=== PATIENT | female | born 1965 | race Caucasian/White ===

== ENCOUNTER 2016-08-06 17:10 | Emergency (ER) | payer OTHER ==
[2016-08-06] MEDS ORDERED: NITROGLYCERIN SUBLINGUAL 1/150 0.4 MG TAB SL ONE (17:54)
[2016-08-06] MEDS ORDERED: ASPIRIN 81 MG CHEWABLE TABLETS PO ONE (17:54)
[2016-08-06] MEDS ORDERED: ASPIRIN 81 MG CHEWABLE TABLETS ONE (17:57)
[2016-08-06] MEDS ORDERED: NITROGLYCERIN SUBLINGUAL 1/150 0.4 MG TAB ONE (17:58)
[2016-08-06 18:11] VITALS: TEMP 97.9; BMI 22.9
[2016-08-06 18:23] LABS: BASOPHIL 1.2 % (0-2.0); EOSINOPHIL 3.1 % (0-4.5); MCH 30.5 pg (25.7-33.7); MCHC 33.7 g/dl (32.0-36.0); MEAN CELL VOLUME 90.5 fl (80-96); MEAN PLT VOLUME 7.7 fl (7.5-11.1); NEUTROPHILS 45.9 % (42.8-82.8); PLATELET COUNT 338 K/MM3 (134-434); RDW 13.5 % (11.6-15.6); WHITE BLOOD COUNT 6.4 K/mm3 (4.0-10.0)
[2016-08-06 18:37] LABS: INR 0.96 (0.82-1.09); PROTHROMBIN TIME (PATIENT) 10.6 SEC (9.98-11.88)
[2016-08-06 18:52] LABS: ALBUMIN 3.6 g/dl (3.4-5.0); ANION GAP 9 (8-16); BILIRUBIN,TOTAL 0.3 mg/dL (0.2-1.0); CALCIUM 8.9 mg/dL (8.5-10.1); CO2 29 mmol/L (21-32); CREATININE 0.9 mg/dL (0.55-1.02); GLUCOSE,RANDOM 89 mg/dL (74-106); SGOT/AST 20 U/L (15-37); SGPT/ALT 30 U/L (12-78); TOT PROT 6.9 g/dl (6.4-8.2)
[2016-08-06 18:55] LABS: ALK PHOS 68 U/L (45-117); TROPONIN I < 0.02 ng/ml (0.00-0.05)
[2016-08-06 19:28] VITALS: BP 122/83; PULSE 66
[2016-08-06] MEDS ORDERED: KETOROLAC TROMETHAMINE 30 MG/1 ML VIAL IVPUSH ONE (19:43)
--- NOTE | 2016-08-06 19:46 | PDOC ---
History of Present Illness - General History Source: Patient, Family Exam Limitations: No Limitations - History of Present Illness Initial Comments: 08/06/16 20:00 The patient is a 50 year old female, with a significant past medical history of HLD, who presents to the emergency department with chest pain for 3 days. She describes her pain as ranging from mild to moderate, with radiation down her left arm. She notes that certain movements exacerbates the pain. She also notes that taking Tylenol mildly alleviates the pain. 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 She notes that she had a similar episode a few years ago and was diagnosed with a musculoskeletal injury. The patient denies shortness of breath, headache and dizziness. Denies fever, chills, nausea, vomit, diarrhea and constipation. Family history: Mother; HTN, CAD (in her 70s) Allergies: None Past surgical history: Bladder prolapse surgery Social history: No alcohol, tobacco or drug use PMD - Dr. Morelia Pitt <Andrew Green - Last Filed: 08/06/16 21:11> - General History Source: Patient, Family Exam Limitations: No Limitations <Manolo Cunningham - Last Filed: 08/06/16 22:53> - General Chief Complaint: Chest Pain Stated Complaint: CHEST PAIN Time Seen by Provider: 08/06/16 18:41 Past History <Andrew Green - Last Filed: 08/06/16 21:11> - Past Medical History Other medical history: denies - Psycho/Social/Smoking Cessation Hx Suicidal Ideation: No Smoking History: Never smoked Hx Alcohol Use: No Drug/Substance Use Hx: No Substance Use Type: None <Manolo Cunningham - Last Filed: 08/06/16 22:53> - Past Medical History Allergies/Adverse Reactions: Allergies Allergy/AdvReac Type Severity Reaction Status Date / Time No Known Allergies Allergy Verified 08/06/16 17:46 Home Medications: Ambulatory Orders Acetaminophen [Tylenol] 650 mg PO Q4H PRN #20 tablet 08/06/16 Naproxen [Naprosyn -] 500 mg PO BID PRN #14 tablet 08/06/16 Review of Systems - Review of Systems Able to Perform ROS?: Yes Comments:: 08/06/16 20:00 GENERAL/CONSTITUTIONAL: No fever or chills. No weakness. HEAD, EYES, EARS, NOSE AND THROAT: No change in vision. No ear pain or discharge. No sore throat. CARDIOVASCULAR: +Chest pain. No shortness of breath RESPIRATORY: No cough, wheezing, or hemoptysis. GASTROINTESTINAL: No nausea, vomiting, diarrhea or constipation. GENITOURINARY: No dysuria, frequency, or change in urination. MUSCULOSKELETAL: No joint or muscle swelling or pain. No neck or back pain. SKIN: No rash NEUROLOGIC: No headache, vertigo, loss of consciousness, or change in strength/ sensation. ENDOCRINE: No increased thirst. No abnormal weight change HEMATOLOGIC/LYMPHATIC: No anemia, easy bleeding, or history of blood clots. ALLERGIC/IMMUNOLOGIC: No hives or skin allergy. <Andrew Green - Last Filed: 08/06/16 21:11> *Physical Exam - Vital Signs Last Vital Signs Temp Pulse Resp BP Pulse Ox 97.9 F 66 12 122/83 99 08/06/16 17:48 08/06/16 19:27 08/06/16 19:27 08/06/16 19:27 08/06/16 18:42 - Physical Exam Comments: 08/06/16 20:00 GENERAL: Awake, alert, and fully oriented, in no acute distress HEAD: No signs of trauma, normocephalic, atraumatic EYES: PERRLA, EOMI, sclera anicteric, conjunctiva clear ENT: Auricles normal inspection, hearing grossly normal, nares patent, oropharynx clear without exudates. Moist mucosa NECK: Normal ROM, supple, no lymphadenopathy, JVD, or masses LUNGS: No distress, speaks full sentences, clear to auscultation bilaterally HEART: Regular rate and rhythm, normal S1 and S2, no murmurs, rubs or gallops, peripheral pulses normal and equal bilaterally. ABDOMEN: Soft, nontender, normoactive bowel sounds. No guarding, no rebound. No masses EXTREMITIES: Normal inspection, Normal range of motion, no edema. No clubbing or cyanosis. NEUROLOGICAL: Cranial nerves II through XII grossly intact. Normal speech, normal gait, no focal sensorimotor deficits SKIN: Warm, Dry, normal turgor, no rashes or lesions noted. <Andrew Green - Last Filed: 08/06/16 21:11> - Vital Signs Last Vital Signs Temp Pulse Resp BP Pulse Ox 97.9 F 66 12 122/83 99 08/06/16 17:48 08/06/16 19:27 08/06/16 19:27 08/06/16 19:27 08/06/16 18:42 <Manolo Cunningham - Last Filed: 08/06/16 22:53> Heart Score/ECG Review - History History: Slightly suspicious - Electrocardiogram EKG: Non specific repolarization disturbance - Age Age: 45-65 - Risk Factors Risk Factors Heart Score: Yes Hx Hypercholesterolemia Based on the list above the patient has:: 1-2 risk factors - Troponin Troponin: </= normal limit - Score Heart Score - Total: 3 #1 ECG reviewed & interpreted by me at: 18:00 08/06/16 19:59 NSR 67, no std/yen, T wave flat III, aVF, QTC 420 msec. normal axis, normal intervals <Manolo Cunningham - Last Filed: 08/06/16 22:53> ED Treatment Course - LABORATORY CBC & Chemistry Diagram: 08/06/16 18:00 08/06/16 18:00 - ADDITIONAL ORDERS Additional order review: Laboratory Results 08/06/16 08/06/16 18:00 18:00 INR 0.96 Sodium 140 Potassium 4.0 Chloride 102 Carbon Dioxide 29 Anion Gap 9 BUN 11 Creatinine 0.9 Creat Clearance w eGFR > 60 Random Glucose 89 Calcium 8.9 Total Bilirubin 0.3 AST 20 ALT 30 Alkaline Phosphatase 68 Creatine Kinase 68 Troponin I < 0.02 Total Protein 6.9 Albumin 3.6 08/06/16 18:00 RBC 4.52 MCV 90.5 MCHC 33.7 RDW 13.5 MPV 7.7 Neutrophils % 45.9 Lymphocytes % 41.7 H Monocytes % 8.1 Eosinophils % 3.1 Basophils % 1.2 - RADIOLOGY Radiograph Interpretation: 08/06/16 21:11 Chest x-ray Reviewed by: Dr. Marky Goldsmith Impression: Normal chest. - Medications Given in the ED: ED Medications Discontinued Medications Generic Name Dose Route Start Last Admin Trade Name Freq PRN Reason Stop Dose Admin Aspirin 324 mg 08/06/16 17:54 08/06/16 18:03 Asa - PO 08/06/16 17:55 324 mg ONCE ONE Administration Nitroglycerin 0.4 mg 08/06/16 17:54 08/06/16 18:03 Nitrostat - SL 08/06/16 17:55 0.4 mg ONCE ONE Administration <Andrew Green - Last Filed: 08/06/16 21:11> - LABORATORY CBC & Chemistry Diagram: 08/06/16 18:00 08/06/16 18:00 - ADDITIONAL ORDERS Additional order review: Laboratory Results 08/06/16 08/06/16 18:00 18:00 INR 0.96 Sodium 140 Potassium 4.0 Chloride 102 Carbon Dioxide 29 Anion Gap 9 BUN 11 Creatinine 0.9 Creat Clearance w eGFR > 60 Random Glucose 89 Calcium 8.9 Total Bilirubin 0.3 AST 20 ALT 30 Alkaline Phosphatase 68 Creatine Kinase 68 Troponin I < 0.02 Total Protein 6.9 Albumin 3.6 08/06/16 18:00 RBC 4.52 MCV 90.5 MCHC 33.7 RDW 13.5 MPV 7.7 Neutrophils % 45.9 Lymphocytes % 41.7 H Monocytes % 8.1 Eosinophils % 3.1 Basophils % 1.2 - Medications Given in the ED: ED Medications Discontinued Medications Generic Name Dose Route Start Last Admin Trade Name Freq PRN Reason Stop Dose Admin Aspirin 324 mg 08/06/16 17:54 08/06/16 18:03 Asa - PO 08/06/16 17:55 324 mg ONCE ONE Administration Nitroglycerin 0.4 mg 08/06/16 17:54 08/06/16 18:03 Nitrostat - SL 08/06/16 17:55 0.4 mg ONCE ONE Administration <Manolo Cunningham - Last Filed: 08/06/16 22:53> Medical Decision Making - Medical Decision Making 08/06/16 19:44 A portion of this note was documented by scribe services under my direction. I have reviewed the details of the note, within reason, and agree with the documentation with the following case summary and management plan written by me. Patient treated in the ED. Nursing notes are reviewed and incorporated into the medical decision-making. Vital signs reviewed. Peripheral IV access obtained by the nurse, laboratory studies are drawn and sent, reviewed and interpreted by myself. Vital Signs Temp Pulse Resp BP Pulse Ox 97.9 F 66 12 122/83 99 08/06/16 17:48 08/06/16 19:27 08/06/16 19:27 08/06/16 19:27 08/06/16 18:42 50-year-old female with past medical history of hyperlipidemia presents to the emergency department for chest pain for 3 days. Patient works as a food checkers and cashiers supervisor. She noted 3 days ago that she was developing constant left-sided arm pain and left upper chest pain reproducible with left arm movements. There is no associated nausea, vomiting, dyspneic on exertion. No midsternal chest pain. The patient has family history of hypertension and believes that her mother had heart issues in her 70s. The patient's physical exam appears consistent with musculoskeletal. This is atypical for acute coronary syndrome. She reports Tylenol relieves the pain. We' ll obtain an EKG and two troponins. If the workup is negative, we'll discharge patient with referral to her primary care physician for further management. 08/06/16 22:44 Chest xray reviewed. No acute findings. CBC, BMP 08/06/16 18:00 08/06/16 18:00 CMP Sodium 140 mmol/L (136-145) 08/06/16 18:00 Potassium 4.0 mmol/L (3.5-5.1) 08/06/16 18:00 Chloride 102 mmol/L (98-107) 08/06/16 18:00 Carbon Dioxide 29 mmol/L (21-32) 08/06/16 18:00 Anion Gap 9 (8-16) 08/06/16 18:00 BUN 11 mg/dL (7-18) 08/06/16 18:00 Creatinine 0.9 mg/dL (0.55-1.02) 08/06/16 18:00 Creat Clearance w eGFR > 60 (>60) 08/06/16 18:00 Random Glucose 89 mg/dL (74-106) 08/06/16 18:00 Calcium 8.9 mg/dL (8.5-10.1) 08/06/16 18:00 Total Bilirubin 0.3 mg/dL (0.2-1.0) 08/06/16 18:00 AST 20 U/L (15-37) 08/06/16 18:00 ALT 30 U/L (12-78) 08/06/16 18:00 Alkaline Phosphatase 68 U/L (45-117) 08/06/16 18:00 Creatine Kinase 68 IU/L (26-192) 08/06/16 21:10 Troponin I < 0.02 ng/ml (0.00-0.05) 08/06/16 21:10 Total Protein 6.9 g/dl (6.4-8.2) 08/06/16 18:00 Albumin 3.6 g/dl (3.4-5.0) 08/06/16 18:00 Patient reports that the medication has improved her pain. Again, I suspect that this is musculoskeletal and very unlikely to be acute coronary syndrome. She has 2 negative troponins. We'll have the patient follow-up with her primary care physician. And if her symptoms are persistent, she should follow-up for physical therapy follow-up. I discussed the physical exam findings, ancillary test results and final diagnoses with the patient. I answered all of the patient's questions. The patient was satisfied with the care received and felt comfortable with the discharge plan and treatment plan. The patient will call their primary care physician within 24 hours to arrange follow-up and will return to the Emergency Department with any new, persistant or worsening symptoms. <Manolo Cunningham - Last Filed: 08/06/16 22:53> *DC/Admit/Observation/Transfer - Attestations Scribe Attestion: 08/06/16 20:00 Documentation prepared by Andrew Green, acting as biomedical analytical scientist for Manolo Cunningham MD <Andrew Green - Last Filed: 08/06/16 21:11> - Discharge Dispostion Admit: No <Manolo Cunningham - Last Filed: 08/06/16 22:53> Diagnosis at time of Disposition: Atypical chest pain - Discharge Dispostion Disposition: HOME Condition at time of disposition: Improved - Prescriptions Prescriptions: Naproxen [Naprosyn -] 500 mg PO BID PRN #14 tablet PRN Reason: Pain Acetaminophen [Tylenol] 650 mg PO Q4H PRN #20 tablet PRN Reason: Pain - Referrals Referrals: Morelia Pitt MD [Primary Care Provider] - - Patient Instructions Printed Discharge Instructions: DI for Atypical Chest Pain Additional Instructions: You have had two negative troponins. Please follow up with your primary care physician. Take 500 mg naproxen every 12 hours as needed for pain. Take 650 mg tylenol every 4 hours as needed for pain. It take several days before your symptoms improve. If your pain is persistent for more than 2 weeks, please make an appointment with your doctor for possible physical therapy. Print Language: SINGAPOREAN
[2016-08-06] MEDS ORDERED: KETOROLAC TROMETHAMINE 30 MG/1 ML VIAL ONE (19:56)
[2016-08-06 21:50] LABS: TROPONIN I < 0.02 ng/ml (0.00-0.05)
--- NOTE | 2016-08-07 16:13 | EKG ---
Test Reason : Blood Pressure : / mmHG Vent. Rate : 067 BPM Atrial Rate : 067 BPM P-R Int : 128 ms QRS Dur : 070 ms QT Int : 398 ms P-R-T Axes : 057 -25 001 degrees QTc Int : 420 ms NORMAL SINUS RHYTHM NONSPECIFIC ST ABNORMALITY ABNORMAL ECG NO PREVIOUS ECGS AVAILABLE Confirmed by NICOLAS WATKINS, CHELSEY ([id number]) on 08/07/2016 4:13:22 PM Referred By: Confirmed By:CHELSEY VALENZUELA MD
== END 2016-08-06 23:29 | disposition home or self-care (01) ==
LOC: JER 17:10
PROC: 3E0333Z Introduction of Anti-inflammatory into Peripheral Vein, Percutaneous Approach (ICD-10-PCS; principal; 2016-08-06)
DX: R07.89 Other chest pain (principal); E78.5 Hyperlipidemia, unspecified
CPT/HCPCS: 36415; 71020-TC; 80053; 82550; 84484; 85025; 85610; 93005; 93010; 96374; 99284-25